=== PATIENT | male | born 1965 | race Two or more races ===

== ENCOUNTER 2020-01-23 12:19 | Emergency (ER) | payer MEDICAID, OTHER ==
[~2020-01-23] VITALS: Ht 167.6 cm; Wt 124.6 kg
--- NOTE | 2020-01-23 13:44 | NUR ---
Pt to room from lobby.
[2020-01-23 15:07] VITALS: BP 140/92
--- NOTE | 2020-01-23 15:15 | NUR ---
TASK RN NOTE: PT CLINICAL AND PHYSICAL ASSESSMENT COMPLETED. REPORT GIVEN TO YADI JOHNSON.
== END 2020-01-23 15:36 | disposition home or self-care (01) ==
LOC: ED 15:27
DX: S39.012A Strain of muscle, fascia and tendon of lower back, initial encounter (principal); G89.29 Other chronic pain; M25.572 Pain in left ankle and joints of left foot; E11.9 Type 2 diabetes mellitus without complications; X58.XXXA Exposure to other specified factors, initial encounter; Y93.89 Activity, other specified; Y92.89 Other specified places as the place of occurrence of the external cause; Y99.8 Other external cause status
CPT/HCPCS: 99283